=== PATIENT | male | born 1980 | race American Indian/Alaskan Native ===

== ENCOUNTER 2017-04-07 10:10 | Emergency (ER) | payer OTHER ==
[2017-04-07 10:23] VITALS: BP 119/86
--- NOTE | 2017-04-07 11:17 | Emergency Department Report ---
ED ENT HPI - General Chief complaint: Earache Stated complaint: EAR ACHE/HERNÁNDEZ Time Seen by Provider: 04/07/17 11:11 Source: patient Mode of arrival: Ambulatory Limitations: No Limitations - History of Present Illness Initial comments: 36-year-old male past medical history none presents with complaint of 2 days of left-sided earache. Denies any foreign body in ear denies any pus drainage from the ear. States he has occasional tinnitus. Last for a few seconds at a time. Denies any dizziness or headache. Patient speaking in full sentences not in acute distress. States he took Tylenol at home with [id number] ear drops with minimal relief of his earache. Patient denies any other symptoms denies fevers or chills. MD complaint: ear pain Onset/Timin -: days(s) Location: L ear Severity: mild Quality: aching Consistency: constant Improves with: none Worsens with: none - Related Data Previous Rx's Medication Instructions Recorded Last Taken Type Acetaminophen/Codeine [Tylenol #3] 1 tab PO Q6H PRN #15 tab 10/05/14 Unknown Rx Naproxen Sodium (Nf) [Anaprox DS 550 mg PO BID PRN #20 tablet 10/05/14 Unknown Rx TAB] Promethazine [Phenergan TAB] 25 mg PO Q6HR PRN #7 tab 02/02/15 Unknown Rx Acetaminophen/Codeine [Tylenol 1 tab PO Q6H PRN #6 tab 04/07/17 Unknown Rx /Codeine # 3 tab] Amoxicillin/Potassium Clav 1 each PO BID #20 tablet 04/07/17 Unknown Rx [Augmentin 875-125 Tablet] Ibuprofen [Motrin] 800 mg PO Q8HR PRN #30 tablet 04/07/17 Unknown Rx Allergies Allergy/AdvReac Type Severity Reaction Status Date / Time No Known Allergies Allergy Verified 04/07/17 10:21 ED Dental HPI - General Chief complaint: Earache Stated complaint: EAR ACHE/HERNÁNDEZ Time Seen by Provider: 04/07/17 11:11 Source: patient Mode of arrival: Ambulatory Limitations: No Limitations - Related Data Previous Rx's Medication Instructions Recorded Last Taken Type Acetaminophen/Codeine [Tylenol #3] 1 tab PO Q6H PRN #15 tab 10/05/14 Unknown Rx Naproxen Sodium (Nf) [Anaprox DS 550 mg PO BID PRN #20 tablet 10/05/14 Unknown Rx TAB] Promethazine [Phenergan TAB] 25 mg PO Q6HR PRN #7 tab 02/02/15 Unknown Rx Acetaminophen/Codeine [Tylenol 1 tab PO Q6H PRN #6 tab 04/07/17 Unknown Rx /Codeine # 3 tab] Amoxicillin/Potassium Clav 1 each PO BID #20 tablet 04/07/17 Unknown Rx [Augmentin 875-125 Tablet] Ibuprofen [Motrin] 800 mg PO Q8HR PRN #30 tablet 04/07/17 Unknown Rx Allergies Allergy/AdvReac Type Severity Reaction Status Date / Time No Known Allergies Allergy Verified 04/07/17 10:21 ED Review of Systems ROS: Stated complaint: EAR ACHE/HERNÁNDEZ Other details as noted in HPI Constitutional: denies: chills, fever Eyes: denies: eye pain, eye discharge, vision change ENT: ear pain. denies: throat pain Respiratory: denies: cough, shortness of breath, wheezing Cardiovascular: denies: chest pain, palpitations Endocrine: no symptoms reported Gastrointestinal: denies: abdominal pain, nausea, diarrhea Genitourinary: denies: urgency, dysuria Musculoskeletal: denies: back pain, joint swelling, arthralgia Skin: denies: rash, lesions Neurological: denies: headache, weakness, paresthesias Psychiatric: denies: anxiety, depression Hematological/Lymphatic: denies: easy bleeding, easy bruising ED Past Medical Hx - Past Medical History Previous Medical History?: No - Surgical History Past Surgical History?: No - Social History Smoking Status: Current Every Day Smoker Substance Use Type: None - Medications Home Medications: Home Medications Medication Instructions Recorded Confirmed Last Taken Type Acetaminophen/Codeine [Tylenol #3] 1 tab PO Q6H PRN #15 tab 10/05/14 Unknown Rx Naproxen Sodium (Nf) [Anaprox DS 550 mg PO BID PRN #20 tablet 10/05/14 Unknown Rx TAB] Promethazine [Phenergan TAB] 25 mg PO Q6HR PRN #7 tab 02/02/15 Unknown Rx Acetaminophen/Codeine [Tylenol 1 tab PO Q6H PRN #6 tab 04/07/17 Unknown Rx /Codeine # 3 tab] Amoxicillin/Potassium Clav 1 each PO BID #20 tablet 04/07/17 Unknown Rx [Augmentin 875-125 Tablet] Ibuprofen [Motrin] 800 mg PO Q8HR PRN #30 tablet 04/07/17 Unknown Rx ED Physical Exam - General Limitations: No Limitations General appearance: alert, in no apparent distress - Head Head exam: Present: atraumatic, normocephalic - Eye Eye exam: Present: normal appearance, PERRL, EOMI - ENT ENT exam: Present: mucous membranes moist - Expanded ENT Exam Expanded TM/Canal exam: Erythema: Left TM, Bulging: Left TM (left external auditory canal intact, erythematous, eardrum erythematous but no perforations. There is no mastoid tenderness on exam) Mouth exam: Present: normal external inspection Teeth exam: Present: normal inspection Throat exam: Positive: normal inspection - Neck Neck exam: Present: normal inspection, full ROM - Respiratory Respiratory exam: Present: normal lung sounds bilaterally. Absent: respiratory distress - Cardiovascular Cardiovascular Exam: Present: regular rate, normal rhythm. Absent: systolic murmur, diastolic murmur, rubs, gallop - GI/Abdominal GI/Abdominal exam: Present: soft, normal bowel sounds - Rectal Rectal exam: Present: deferred - Extremities Exam Extremities exam: Present: normal inspection - Back Exam Back exam: Present: normal inspection - Neurological Exam Neurological exam: Present: alert, oriented X3 - Psychiatric Psychiatric exam: Present: normal affect, normal mood - Skin Skin exam: Present: warm, dry, intact, normal color. Absent: rash ED Course Vital Signs 04/07/17 04/07/17 10:22 10:23 Temperature 99 F 99 F Pulse Rate 98 H 98 H Respiratory 16 Rate Blood Pressure 119/86 [Right] O2 Sat by Pulse 97 Oximetry ED Medical Decision Making - Medical Decision Making A/P: Otitis media left side 1-10 day course of Augmentin, Motrin 800 when necessary 2-follow-up with primary care and ENT Critical care attestation.: If time is entered above; I have spent that time in minutes in the direct care of this critically ill patient, excluding procedure time. ED Disposition Clinical Impression: Earache on left Otitis media Qualifiers: Otitis media type: suppurative Chronicity: acute Laterality: left Recurrence: not specified as recurrent Spontaneous tympanic membrane rupture: without spontaneous rupture Qualified Code(s): H66.002 - Acute suppurative otitis media without spontaneous rupture of ear drum, left ear Disposition: DC-01 TO HOME OR SELFCARE Is pt being admited?: No Does the pt Need Aspirin: No Condition: Stable Instructions: Otitis Media (ED), Earache (ED), Anesthetics (Into the ear) Prescriptions: Acetaminophen/Codeine [Tylenol /Codeine # 3 tab] 1 tab PO Q6H PRN #6 tab PRN Reason: Pain Amoxicillin/Potassium Clav [Augmentin 875-125 Tablet] 1 each PO BID #20 tablet Ibuprofen [Motrin] 800 mg PO Q8HR PRN #30 tablet PRN Reason: Pain Referrals: [facility] [Outside] - 3-5 Days [facility] [Outside] - 3-5 Days ENT [facility] [Provider Group] - 3-5 Days ENT [facility] [Provider Group] - 3-5 Days Forms: Work/School Release Form(ED) Time of Disposition: 11:17
== END 2017-04-07 11:56 | disposition home or self-care (01) ==
LOC: ED 10:10
DX: H92.02 Otalgia, left ear (principal); F17.200 Nicotine dependence, unspecified, uncomplicated
CPT/HCPCS: 99282

== ENCOUNTER 2017-07-17 07:49 | Emergency (ER) | payer OTHER ==
[2017-07-17 08:05] VITALS: BP 127/77
[2017-07-17] MEDS ORDERED: TYLENOL ONE (08:05)
[2017-07-17] MEDS ORDERED: TYLENOL PO ONE (08:06)
--- NOTE | 2017-07-17 08:26 | XRay Report ---
Chest 2 views: History: Shortness of breath. Findings: Normal cardiomediastinal silhouette. Trachea is midline. No consolidation, pneumothorax or pleural effusion. Impression: No acute cardiopulmonary findings.
[2017-07-17 08:29] LABS: Basophils % (Auto) 0.3 % (0.0-1.8); Eosinophils # (Auto) 0.1 K/mm3 (0.0-0.4); Eosinophils % (Auto) 0.5 % (0.0-4.3); Hematocrit 42.2 % (35.5-45.6); Hemoglobin 14.8 gm/dl (11.8-15.2); Lymphocytes # (Auto) 1.8 K/mm3 (1.2-5.4); Lymphocytes % (Auto) 12.1 % (13.4-35.0); Mean Corpuscular HGB Conc 35 % (32-34); Mean Corpuscular Hemoglobin 32 pg (28-32); Mean Corpuscular Volume 90 fl (84-94); Monocytes # (Auto) 0.8 K/mm3 (0.0-0.8); Monocytes % (Auto) 5.5 % (0.0-7.3); Platelet Count 328 K/mm3 (140-440); Red Blood Count 4.69 M/mm3 (3.65-5.03); Red Cell Distribution Width 12.9 % (13.2-15.2)
[2017-07-17 08:40] LABS: BUN/Creatinine Ratio 18; Blood Urea Nitrogen 14 mg/dL (9-20); Hemolysis Index 8
--- NOTE | 2017-07-17 10:35 | Emergency Department Report ---
ED General Adult HPI - General Chief complaint: Upper Respiratory Infection Stated complaint: FLU SYMPTOMS Source: patient Mode of arrival: Ambulatory Limitations: No Limitations - History of Present Illness Initial comments: Patient presents to the emergency department complaint of a fever for the last couple days and cough. Patient denies any chest pain, shortness of breath, headache. -: Gradual Radiation: non-radiation Severity scale (0 -10): 0 Consistency: constant Improves with: none Worsens with: none Associated Symptoms: denies other symptoms Treatments Prior to Arrival: none - Related Data Previous Rx's Medication Instructions Recorded Last Taken Type Acetaminophen/Codeine [Tylenol #3] 1 tab PO Q6H PRN #15 tab 10/05/14 Unknown Rx Naproxen Sodium (Nf) [Anaprox DS 550 mg PO BID PRN #20 tablet 10/05/14 Unknown Rx TAB] Promethazine [Phenergan TAB] 25 mg PO Q6HR PRN #7 tab 02/02/15 Unknown Rx Acetaminophen/Codeine [Tylenol 1 tab PO Q6H PRN #6 tab 04/07/17 Unknown Rx /Codeine # 3 tab] Amoxicillin/Potassium Clav 1 each PO BID #20 tablet 04/07/17 Unknown Rx [Augmentin 875-125 Tablet] Ibuprofen [Motrin] 800 mg PO Q8HR PRN #30 tablet 04/07/17 Unknown Rx ALBUTEROL Inhaler [ProAir HFA 2 puff IH Q4HR PRN #1 inhalation 07/17/17 Unknown Rx Inhaler] Benzonatate [Tessalon Perles] 100 mg PO Q8HR PRN #24 capsule 07/17/17 Unknown Rx Levofloxacin [Levaquin] 750 mg PO QDAY 5 Days #5 tablet 07/17/17 Unknown Rx Allergies Allergy/AdvReac Type Severity Reaction Status Date / Time No Known Allergies Allergy Verified 04/07/17 10:21 ED Review of Systems ROS: Stated complaint: FLU SYMPTOMS Other details as noted in HPI Constitutional: fever. denies: chills Eyes: denies: eye pain, eye discharge, vision change ENT: denies: ear pain, throat pain Respiratory: cough. denies: shortness of breath, wheezing Cardiovascular: denies: chest pain, palpitations Endocrine: no symptoms reported Gastrointestinal: denies: abdominal pain, nausea, diarrhea Genitourinary: denies: urgency, dysuria Musculoskeletal: denies: back pain, joint swelling, arthralgia Skin: denies: rash, lesions Neurological: denies: headache, weakness, paresthesias Psychiatric: denies: anxiety, depression Hematological/Lymphatic: denies: easy bleeding, easy bruising ED Past Medical Hx - Past Medical History Previous Medical History?: No - Surgical History Past Surgical History?: No - Social History Smoking Status: Current Every Day Smoker Substance Use Type: Non Opiate Pain - Medications Home Medications: Home Medications Medication Instructions Recorded Confirmed Last Taken Type Acetaminophen/Codeine [Tylenol #3] 1 tab PO Q6H PRN #15 tab 10/05/14 Unknown Rx Naproxen Sodium (Nf) [Anaprox DS 550 mg PO BID PRN #20 tablet 10/05/14 Unknown Rx TAB] Promethazine [Phenergan TAB] 25 mg PO Q6HR PRN #7 tab 02/02/15 Unknown Rx Acetaminophen/Codeine [Tylenol 1 tab PO Q6H PRN #6 tab 04/07/17 Unknown Rx /Codeine # 3 tab] Amoxicillin/Potassium Clav 1 each PO BID #20 tablet 04/07/17 Unknown Rx [Augmentin 875-125 Tablet] Ibuprofen [Motrin] 800 mg PO Q8HR PRN #30 tablet 04/07/17 Unknown Rx ALBUTEROL Inhaler [ProAir HFA 2 puff IH Q4HR PRN #1 inhalation 07/17/17 Unknown Rx Inhaler] Benzonatate [Tessalon Perles] 100 mg PO Q8HR PRN #24 capsule 07/17/17 Unknown Rx Levofloxacin [Levaquin] 750 mg PO QDAY 5 Days #5 tablet 07/17/17 Unknown Rx ED Physical Exam - General Limitations: No Limitations General appearance: alert, in no apparent distress - Head Head exam: Present: atraumatic, normocephalic - Eye Eye exam: Present: normal appearance - ENT ENT exam: Present: mucous membranes moist - Neck Neck exam: Present: normal inspection - Respiratory Respiratory exam: Present: other (rales left lung base). Absent: respiratory distress - Cardiovascular Cardiovascular Exam: Present: regular rate, normal rhythm. Absent: systolic murmur, diastolic murmur, rubs, gallop - GI/Abdominal GI/Abdominal exam: Present: soft, normal bowel sounds - Rectal Rectal exam: Present: deferred - Extremities Exam Extremities exam: Present: normal inspection - Back Exam Back exam: Present: normal inspection - Neurological Exam Neurological exam: Present: alert, oriented X3 - Psychiatric Psychiatric exam: Present: normal affect, normal mood - Skin Skin exam: Present: warm, dry, intact, normal color. Absent: rash ED Course Vital Signs 07/17/17 08:03 Temperature 101 F H Pulse Rate 109 H Respiratory 18 Rate Blood Pressure 127/77 O2 Sat by Pulse 94 Oximetry ED Medical Decision Making - Lab Data Result diagrams: 07/17/17 08:12 07/17/17 08:12 - Medical Decision Making Discussed results with patient Critical care attestation.: If time is entered above; I have spent that time in minutes in the direct care of this critically ill patient, excluding procedure time. ED Disposition Clinical Impression: Pneumonia Disposition: - TO HOME OR SELFCARE Is pt being admited?: No Does the pt Need Aspirin: No Condition: Stable Instructions: Bacterial Pneumonia (ED), Pneumonia (ED) Additional Instructions: Return if symptoms become worse Prescriptions: ALBUTEROL Inhaler [ProAir HFA Inhaler] 2 puff IH Q4HR PRN #1 inhalation PRN Reason: Shortness Of Breath Benzonatate [Tessalon Perles] 100 mg PO Q8HR PRN #24 capsule PRN Reason: Cough Levofloxacin [Levaquin] 750 mg PO QDAY 5 Days #5 tablet Referrals: PRIMARY MD SAIMA [Primary Care Provider] - 3-5 Days ROMA RICHARDSON MD [Staff Physician] - 3-5 Days Forms: Work/School Release Form(ED) Time of Disposition: 10:32
== END 2017-07-17 10:50 | disposition home or self-care (01) ==
LOC: ED 07:49
DX: J18.9 Pneumonia, unspecified organism (principal); F17.200 Nicotine dependence, unspecified, uncomplicated; Z79.899 Other long term (current) drug therapy
CPT/HCPCS: 36415; 71046; 80048; 85025

== ENCOUNTER 2017-07-31 18:50 | Emergency (ER) | payer OTHER ==
--- NOTE | 2017-07-31 23:33 | Emergency Department Report ---
HPI - General Chief Complaint: Upper Respiratory Infection Time Seen by Provider: 07/31/17 22:40 - HPI HPI: 37-year-old male presents to the emergency department with a complaint of 2+ weeks of sinus congestion. He was seen here on 07/17/17 for similar symptoms but at that time he had a slight cough as well at that time. He was diagnosed with a pneumonia and was placed on Levaquin. He says that he took the antibiotics but his symptoms have not fully resolved. He no longer complains of the cough but sometimes says that he had some intermittent chills. He otherwise denies any past medical history. He denies any tobacco or illicit drug use or abuse. He does not have a primary care physician. No recent travel or sick contacts at home. ED Past Medical Hx - Past Medical History Previous Medical History?: No - Surgical History Past Surgical History?: No - Social History Smoking Status: Former Smoker Substance Use Type: None - Medications Home Medications: Home Medications Medication Instructions Recorded Confirmed Last Taken Type Acetaminophen/Codeine [Tylenol #3] 1 tab PO Q6H PRN #15 tab 10/05/14 Unknown Rx Naproxen Sodium (Nf) [Anaprox DS 550 mg PO BID PRN #20 tablet 10/05/14 Unknown Rx TAB] Promethazine [Phenergan TAB] 25 mg PO Q6HR PRN #7 tab 02/02/15 Unknown Rx Acetaminophen/Codeine [Tylenol 1 tab PO Q6H PRN #6 tab 04/07/17 Unknown Rx /Codeine # 3 tab] Amoxicillin/Potassium Clav 1 each PO BID #20 tablet 04/07/17 Unknown Rx [Augmentin 875-125 Tablet] Ibuprofen [Motrin] 800 mg PO Q8HR PRN #30 tablet 04/07/17 Unknown Rx ALBUTEROL Inhaler [ProAir HFA 2 puff IH Q4HR PRN #1 inhalation 07/17/17 Unknown Rx Inhaler] Benzonatate [Tessalon Perles] 100 mg PO Q8HR PRN #24 capsule 07/17/17 Unknown Rx Levofloxacin [Levaquin] 750 mg PO QDAY 5 Days #5 tablet 07/17/17 Unknown Rx Fluticasone [Flonase] 2 spray NS QDAY #1 bottle 07/31/17 Unknown Rx Loratadine/Pseudoephedrine 1 tab PO DAILY #14 tablet 07/31/17 Unknown Rx [Claritin-D 24Hr] ED Review of Systems ROS: Stated complaint: FEVER/WEAKNESS Other details as noted in HPI Comment: All other systems reviewed and negative Constitutional: chills. denies: fever Eyes: denies: eye pain, eye discharge, vision change ENT: congestion. denies: ear pain Respiratory: denies: shortness of breath, wheezing Cardiovascular: denies: chest pain, palpitations Gastrointestinal: denies: abdominal pain, nausea, diarrhea Genitourinary: denies: urgency, dysuria Musculoskeletal: denies: back pain, joint swelling, arthralgia Skin: denies: rash, lesions Neurological: denies: headache, weakness, paresthesias Physical Exam - Physical Exam Vital Signs: Vital Signs 07/31/17 18:55 Temperature 98.9 F Pulse Rate 122 H Respiratory 16 Rate Blood Pressure 122/88 O2 Sat by Pulse 96 Oximetry Physical Exam: GENERAL: The patient is well-developed well-nourished. HENT: Normocephalic. Atraumatic. Patient has moist mucous membranes. There is some boggy nasal mucosa. He has some reproducible tenderness along the paranasal sinuses. EYES: Extraocular motions are intact. Pupils equal reactive to light bilaterally. NECK: Supple. Trachea is midline. CHEST/LUNGS: Clear to auscultation. There is no respiratory distress noted. HEART/CARDIOVASCULAR: Regular. There is no tachycardia. There is no murmur. ABDOMEN: Abdomen is soft, nontender. Patient has normal bowel sounds. There is no abdominal distention. SKIN: Skin is warm and dry. NEURO: The patient is awake, alert, and oriented. The patient is cooperative. The patient has no focal neurologic deficits. The patient has normal speech. MUSCULOSKELETAL: There is no tenderness or deformity. There is no limitation range of motion. There is no evidence of acute injury. ED Course Vital Signs 07/31/17 18:55 Temperature 98.9 F Pulse Rate 122 H Respiratory 16 Rate Blood Pressure 122/88 O2 Sat by Pulse 96 Oximetry - Pulse Oximetry Interpretation Digit-Finger Initial Pulse Oximetry Readin O2 Sat by Pulse Oximetry: 96 Actions Taken: none Additional Comments: Normal ED Medical Decision Making - Radiology Data Radiology results: image reviewed interpreted by me: Chest x-ray does not show any acute process. There are no pleural effusions, obvious pneumonia and there is no pneumothorax. - Medical Decision Making Patient presents to the emergency department for a follow-up regarding some upper respiratory type symptoms he has been having that have not resolved after going on some antibiotics and other treatments from a previous visit. Most of his complaint is regarding sinus pressure. However the patient insisted that he didn't want to repeat his x-ray to make sure that there was no pneumonia or abnormalities as he says he was diagnosed with pneumonia but then someone else read him the radiology report which showed that there was no signs of pneumonia. His vital signs were stable except for he had some tachycardia through triage that has since resolved. He is afebrile. Chest x-ray did not show any acute process. 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 He has been given referrals for primary care. He will return to the ER with any worsening of symptoms or any acute distress. - Differential Diagnosis pneumonia, viral URI, sinusitis, influenza Critical Care Time: No Critical care attestation.: If time is entered above; I have spent that time in minutes in the direct care of this critically ill patient, excluding procedure time. ED Disposition Clinical Impression: Sinus congestion Upper respiratory infection Qualifiers: URI type: unspecified URI Qualified Code(s): J06.9 - Acute upper respiratory infection, unspecified Disposition: DC-01 TO HOME OR SELFCARE Is pt being admited?: No Condition: Stable Instructions: Upper Respiratory Infection (ED), Cold Symptoms (ED) Additional Instructions: Please follow up with a primary care physician in the next few days if possible. Return to the emergency Department with any worsening of your symptoms or any acute distress. Prescriptions: Fluticasone [Flonase] 2 spray NS QDAY #1 bottle Loratadine/Pseudoephedrine [Claritin-D 24Hr] 1 tab PO DAILY #14 tablet Referrals: PRIMARY MD SAIMA [Primary Care Provider] - 3-5 Days STAS RACHEL MD [Staff Physician] - 3-5 Days MALICK HARRIS MD [Staff Physician] - 3-5 Days Time of Disposition: 23:36
[2017-07-31 23:37] VITALS: BP 121/81
--- NOTE | 2017-08-05 14:15 | XRay Report ---
FINAL REPORT EXAM: XR CHEST ROUTINE 2V HISTORY: cough TECHNIQUE: Frontal and lateral chest x-ray. PRIORS: None. FINDINGS: Cardiac and mediastinal silhouette within normal limits. Lungs are normally expanded, without significant vascular congestion. No focal consolidation, pleural effusion or apparent pneumothorax. Bony thorax grossly unremarkable. IMPRESSION: 1. No acute consolidation.
== END 2017-07-31 23:46 | disposition home or self-care (01) ==
LOC: ED 18:50
DX: J06.9 Acute upper respiratory infection, unspecified (principal); Z87.891 Personal history of nicotine dependence
CPT/HCPCS: 71046; 99283

== ENCOUNTER 2018-07-22 20:35 | Emergency (ER) | payer OTHER ==
--- NOTE | 2018-07-22 20:44 | Emergency Department Report ---
Blank Doc - Documentation Documentation: 38 y o male presents with left ear radiating to neck pain x couple of days no dental pain ACC eval
== END 2018-07-23 00:30 | disposition left against medical advice (07) ==
LOC: ED 20:35
DX: M54.2 Cervicalgia (principal); R51 Headache; Z53.21 Procedure and treatment not carried out due to patient leaving prior to being seen by health care provider

== ENCOUNTER 2018-12-13 22:50 | Emergency (ER) | payer OTHER ==
[2018-12-13 23:32] LABS: Basophils % (Auto) 0.4 % (0.0-1.8); Eosinophils # (Auto) 0.4 K/mm3 (0.0-0.4); Eosinophils % (Auto) 4.5 % (0.0-4.3); Hematocrit 45.6 % (35.5-45.6); Hemoglobin 15.7 gm/dl (11.8-15.2); Lymphocytes # (Auto) 1.7 K/mm3 (1.2-5.4); Lymphocytes % (Auto) 22.3 % (13.4-35.0); Mean Corpuscular HGB Conc 34 % (32-34); Mean Corpuscular Volume 95 fl (84-94); Monocytes # (Auto) 0.6 K/mm3 (0.0-0.8); Monocytes % (Auto) 7.9 % (0.0-7.3); Platelet Count 270 K/mm3 (140-440); Red Blood Count 4.81 M/mm3 (3.65-5.03); Red Cell Distribution Width 12.9 % (13.2-15.2)
--- NOTE | 2018-12-13 23:47 | XRay Report ---
CHEST 1 VIEW INDICATION / CLINICAL INFORMATION: Chest Pain. COMPARISON: 07/31/2017 FINDINGS: SUPPORT DEVICES: None. HEART / MEDIASTINUM: No significant abnormality. LUNGS / PLEURA: No significant pulmonary or pleural abnormality. No pneumothorax. ADDITIONAL FINDINGS: No significant additional findings. IMPRESSION: 1. No acute findings. Signer Name: Jonathan Garibay MD Signed: 12/13/2018 11:43 PM Workstation Name: [id number]
--- NOTE | 2018-12-13 23:47 | Cat Scan Report ---
CT head/brain wo con INDICATION / CLINICAL INFORMATION: syncopy. TECHNIQUE: All CT scans at this location are performed using CT dose reduction for ALARA by means of automated e xposure control. COMPARISON: None available. FINDINGS: No intracranial hemorrhage or abnormal extra-axial fluid collection. The ventricular system and basilar cisterns are normal. No evidence of territorial infarction or mass effect. Partial opacification of the right ethmoid sinus without demonstrated air-fluid level. No skeletal abnormality. IMPRESSION: 1. No acute intracranial abnormality. 2. Right ethmoid sinus disease. Signer Name: Jonathan Garibay MD Signed: 12/13/2018 11:43 PM Workstation Name: [id number]
[2018-12-13 23:48] LABS: BUN/Creatinine Ratio 17; Blood Urea Nitrogen 15 mg/dL (9-20); Calcium 9.2 mg/dL (8.4-10.2); Hemolysis Index 11
--- NOTE | 2018-12-14 00:05 | Emergency Department Report ---
ED Syncope HPI - General Chief Complaint: Syncope Stated Complaint: FAINTING SPELLS Time Seen by Provider: 12/13/18 23:44 - History of Present Illness Initial Comments: Mr. Carrasquillo is a 38-year-old -[place] Citizen male who presents with stating he had a syncopal episode yesterday after taking sleep aid. states patient woke up suddenly and upon returning back to bed fell across to bed was hard to arouse. States she,called an ambulance last night however symptoms resolved in 1-2 minutes so ambulance was canceled. Pt denies symptoms since yesterday. Drove to ed tonight because he wanted to be checked out. Pt has no history of seizures, there is no postictal phase per . There is no feverc no chills, no cough,no chest pain or shortness of breath, no nausea or vomiting. patient denies substance on yesterday. Patient denies alcohol on yesterday. states he took sleep Aid because of his head congestion. Timing/Prior Episodes: other (single episode yesterday ) Precipitating Factors: Positive: none Context: standing Loss of Consciousness: brief (seconds) Current Symptoms: back to normal - Related Data Allergies/Adverse Reactions: Allergies No Known Allergies Allergy (Verified 04/07/17 10:21) Home Medications: Ambulatory Orders Acetaminophen/Codeine [Tylenol #3] 1 tab PO Q6H PRN #15 tab 10/05/14 Naproxen Sodium (Nf) [Anaprox DS TAB] 550 mg PO BID PRN #20 tablet 10/05/14 Promethazine [Phenergan TAB] 25 mg PO Q6HR PRN #7 tab 02/02/15 Acetaminophen/Codeine [Tylenol /Codeine # 3 tab] 1 tab PO Q6H PRN #6 tab 04/07/17 Amoxicillin/Potassium Clav [Augmentin 875-125 Tablet] 1 each PO BID #20 tablet 04/07/17 Ibuprofen [Motrin] 800 mg PO Q8HR PRN #30 tablet 04/07/17 ALBUTEROL Inhaler (OR & NICU) [ProAir HFA Inhaler] 2 puff IH Q4HR PRN #1 inhalation 07/17/17 Benzonatate [Tessalon Perles] 100 mg PO Q8HR PRN #24 capsule 07/17/17 levoFLOXacin [Levaquin] 750 mg PO QDAY 5 Days #5 tablet 07/17/17 Fluticasone [Flonase] 2 spray NS QDAY #1 bottle 07/31/17 Loratadine/Pseudoephedrine [Claritin-D 24Hr] 1 tab PO DAILY #14 tablet 07/31/17 Amoxicillin/Potassium Clav [Augmentin 875-125 Tablet] 1 each PO BID 7 Days #14 tablet 12/14/18 Fluticasone [Flonase] 1 spray NS QDAY #1 bottle 12/14/18 diphenhydrAMINE [Benadryl CAP] 25 mg PO Q8HR PRN #21 capsule 12/14/18 predniSONE [Deltasone] 40 mg PO QDAY 5 Days #10 tab 12/14/18 ED Review of Systems ROS: Stated complaint: FAINTING SPELLS Other details as noted in HPI Constitutional: denies: chills, fever Eyes: denies: eye pain, eye discharge, vision change ENT: congestion. denies: ear pain, throat pain Respiratory: cough. denies: shortness of breath, wheezing Cardiovascular: denies: chest pain, palpitations Endocrine: no symptoms reported Gastrointestinal: denies: abdominal pain, nausea, vomiting, diarrhea Genitourinary: denies: urgency, dysuria Musculoskeletal: denies: back pain, joint swelling, arthralgia Skin: denies: rash, lesions Neurological: denies: headache, weakness, numbness, paresthesias, confusion, vertigo Psychiatric: denies: anxiety, depression Hematological/Lymphatic: denies: easy bleeding, easy bruising ED Past Medical Hx - Past Medical History Previous Medical History?: No - Surgical History Past Surgical History?: No - Social History Smoking Status: Current Every Day Smoker Substance Use Type: Alcohol, Marijuana - Medications Home Medications: Home Medications Medication Instructions Recorded Confirmed Last Taken Type Acetaminophen/Codeine [Tylenol #3] 1 tab PO Q6H PRN #15 tab 10/05/14 Unknown Rx Naproxen Sodium (Nf) [Anaprox DS 550 mg PO BID PRN #20 tablet 10/05/14 Unknown Rx TAB] Promethazine [Phenergan TAB] 25 mg PO Q6HR PRN #7 tab 02/02/15 Unknown Rx Acetaminophen/Codeine [Tylenol 1 tab PO Q6H PRN #6 tab 04/07/17 Unknown Rx /Codeine # 3 tab] Amoxicillin/Potassium Clav 1 each PO BID #20 tablet 04/07/17 Unknown Rx [Augmentin 875-125 Tablet] Ibuprofen [Motrin] 800 mg PO Q8HR PRN #30 tablet 04/07/17 Unknown Rx ALBUTEROL Inhaler (OR & NICU) 2 puff IH Q4HR PRN #1 inhalation 07/17/17 Unknown Rx [ProAir HFA Inhaler] Benzonatate [Tessalon Perles] 100 mg PO Q8HR PRN #24 capsule 07/17/17 Unknown Rx levoFLOXacin [Levaquin] 750 mg PO QDAY 5 Days #5 tablet 07/17/17 Unknown Rx Fluticasone [Flonase] 2 spray NS QDAY #1 bottle 07/31/17 Unknown Rx Loratadine/Pseudoephedrine 1 tab PO DAILY #14 tablet 07/31/17 Unknown Rx [Claritin-D 24Hr] Amoxicillin/Potassium Clav 1 each PO BID 7 Days #14 tablet 12/14/18 Unknown Rx [Augmentin 875-125 Tablet] Fluticasone [Flonase] 1 spray NS QDAY #1 bottle 12/14/18 Unknown Rx diphenhydrAMINE [Benadryl CAP] 25 mg PO Q8HR PRN #21 capsule 12/14/18 Unknown Rx predniSONE [Deltasone] 40 mg PO QDAY 5 Days #10 tab 12/14/18 Unknown Rx ED Physical Exam - General Limitations: No Limitations General appearance: alert, in no apparent distress - Head Head exam: Present: atraumatic, normocephalic, normal inspection - Eye Eye exam: Present: normal appearance, PERRL, EOMI. Absent: conjunctival injection, nystagmus Pupils: Present: normal accommodation - ENT ENT exam: Present: normal exam, normal orophraynx, mucous membranes moist, TM's normal bilaterally, normal external ear exam, other (clear post nasal drip ) - Neck Neck exam: Present: normal inspection, full ROM. Absent: tenderness, meningismus, lymphadenopathy, thyromegaly - Respiratory Respiratory exam: Present: normal lung sounds bilaterally. Absent: respiratory distress, wheezes, stridor, chest wall tenderness - Cardiovascular Cardiovascular Exam: Present: regular rate, normal rhythm, normal heart sounds. Absent: systolic murmur, diastolic murmur, rubs, gallop - GI/Abdominal GI/Abdominal exam: Present: soft, normal bowel sounds. Absent: distended, tenderness, guarding, rebound, rigid, bruit, hernia - Rectal Rectal exam: Present: deferred - Extremities Exam Extremities exam: Present: normal inspection, full ROM, normal capillary refill. Absent: tenderness, pedal edema - Back Exam Back exam: Present: normal inspection, full ROM. Absent: tenderness, CVA tenderness (R), CVA tenderness (L), rash noted - Neurological Exam Neurological exam: Present: alert, oriented X3, CN II-XII intact, normal gait, reflexes normal. Absent: motor sensory deficit - Expanded Neurological Exam Expanded Patient oriented to: Present: person, place, time Speech: Present: fluid speech Cranial nerves: EOM's Intact: Normal, Gag Reflex: Normal, Tongue Deviation: Normal, Nystagmus: Normal, Facial Sensation: Normal Upper motor neuron: Oli Neglect: Normal, Pronator Drift: Normal Motor strength exam: RUE: 5, LUE: 5, RLE: 5, LLE: 5 DTR: bicep (R): 2+, bicep (L): 2+, ankle (R): 2+, ankle (L): 2+ Best Eye Response (Widen): (4) open spontaneously Best Motor Response (Widen): (6) obeys commands Best Verbal Response (Widen): (5) oriented Widen Total: 15 - Psychiatric Psychiatric exam: Present: normal affect, normal mood - Skin Skin exam: Present: warm, dry, intact, normal color. Absent: rash ED Course Vital Signs 12/13/18 12/14/18 22:54 01:17 Temperature 99.1 F Pulse Rate 94 H Respiratory 18 20 Rate Blood Pressure 154/94 O2 Sat by Pulse 97 Oximetry ED Medical Decision Making - Lab Data Result diagrams: 12/13/18 23:10 12/13/18 23:10 - EKG Data EKG shows normal: sinus rhythm, axis, intervals, QRS complexes, ST-T waves Rate: normal - EKG Data Interpretation: normal EKG (ekg interp by ed attending NSR , No ST Elevated IA ) - Radiology Data Radiology results: report reviewed, image reviewed Findings [facility] [address] [place] [address] XRay Report Signed Patient: RANDOLPH CARRASQUILLO JR MR #: [id number] : 1980 Acct:[id number] Age/Sex: 38 / M ADM Date: 12/13/18 Loc: ED Attending Dr: Ordering Physician: PEPPER JAMES MD Date of Service: 12/13/18 Procedure(s): XR chest 1V ap Accession Number(s): [id number] cc: PEPPER JAMES MD Fluoro Time In Minutes: CHEST 1 VIEW INDICATION / CLINICAL INFORMATION: Chest Pain. COMPARISON: 07/31/2017 FINDINGS: SUPPORT DEVICES: None. HEART / MEDIASTINUM: No significant abnormality. LUNGS / PLEURA: No significant pulmonary or pleural abnormality. No pneumothorax. ADDITIONAL FINDINGS: No significant additional findings. IMPRESSION: 1. No acute findings. Signer Name: Jonathan Garibay MD Signed: 12/13/2018 11:43 PM Workstation Name: [id number] Transcribed By: LEONELA Dictated By: Jonathan Garbiay MD Electronically Authenticated By: Jonathan Garibay MD Signed Date/Time: 12/13/182342 DD/ 42 TD/TT: Findings [facility] [address] [place] [address] Cat Scan Report Signed Patient: RANDOLPH CARRASQUILLO JR MR #: [id number] : 1980 Acct:[id number] Age/Sex: 38 / M ADM Date: 12/13/18 Loc: ED Attending Dr: Ordering Physician: PEPPER JAMES MD Date of Service: 12/13/18 Procedure(s): CT head/brain wo con Accession Number(s): [id number] cc: PEPPER JAMES MD CT head/brain wo con INDICATION / CLINICAL INFORMATION: syncopy. TECHNIQUE: All CT scans at this location are performed using CT dose reduction for ALARA by means of automated exposure control. COMPARISON: None available. FINDINGS: No intracranial hemorrhage or abnormal extra-axial fluid collection. The ventricular system and basilar cisterns are normal. No evidence of territorial infarction or mass effect. Partial opacification of the right ethmoid sinus without demonstrated air-fluid level. No skeletal abnormality. IMPRESSION: 1. No acute intracranial abnormality. 2. Right ethmoid sinus disease. Signer Name: Jonathan Garibay MD Signed: 12/13/2018 11:43 PM Workstation Name: [id number] Transcribed By: [place] Dictated By: Jonathan Garibay MD Electronically Authenticated By: Jonathan Garibay MD Signed Date/Time: 12/13/182342 DD/ 38 TD/TT: - Medical Decision Making CT: Ethmoid Opacity, cxr: beto no infiltrate no opacities, discussed findings with patient and , pt states symptoms are much improved. there is no cp no sob no dizziness no lightheadedness no n/v no diaphoresis. pt is ambulatory with steady gait at this time, pt appears nontoxic. Heart score is: 0. Plan: DC to home with rx for augmentin, ibuprofen, prednisone, flonase. Stop using sleep aid. Take all medications as prescribed. Follow up with your pcp 2-3 days. pt and verbalized agreement and understanding of same. Critical care attestation.: If time is entered above; I have spent that time in minutes in the direct care of this critically ill patient, excluding procedure time. ED Disposition Clinical Impression: Near syncope Sinusitis Qualifiers: Sinusitis location: ethmoidal Chronicity: acute Recurrence: recurrent Qualified Code(s): J01.21 - Acute recurrent ethmoidal sinusitis Disposition: DC-01 TO HOME OR SELFCARE Is pt being admited?: No Does the pt Need Aspirin: No Condition: Stable Instructions: Sinusitis (ED), Near Syncope (ED) Additional Instructions: Follow up with your pcp 2-3 days. Prescriptions: Amoxicillin/Potassium Clav [Augmentin 875-125 Tablet] 1 each PO BID 7 Days #14 tablet diphenhydrAMINE [Benadryl CAP] 25 mg PO Q8HR PRN #21 capsule PRN Reason: sinus congestion predniSONE [Deltasone] 40 mg PO QDAY 5 Days #10 tab Fluticasone [Flonase] 1 spray NS QDAY #1 bottle Referrals: CANDIDO BHANDRAI MD [Staff Physician] - 3-5 Days [facility] [Outside] - 3-5 Days Forms: Work/School Release Form(ED) Time of Disposition: 01:36
[2018-12-14] MEDS ORDERED: IBUPROFEN PO ONE (01:05)
[2018-12-14] MEDS ORDERED: BENADRYL PO ONE (01:05)
[2018-12-14] MEDS ORDERED: DELTASONE PO ONE (01:06)
[2018-12-14 02:12] VITALS: BP 149/83
== END 2018-12-14 02:14 | disposition home or self-care (01) ==
LOC: ED 22:50
DX: J32.9 Chronic sinusitis, unspecified (principal); R55 Syncope and collapse; F17.200 Nicotine dependence, unspecified, uncomplicated; F12.10 Cannabis abuse, uncomplicated
CPT/HCPCS: 36415; 70450; 71045; 80048; 84484; 85025; 93005; 93010; 99285; J7512

== ENCOUNTER 2019-09-10 22:45 | Emergency (ER) | payer OTHER ==
--- NOTE | 2019-09-11 03:09 | Emergency Department Report ---
ED Medical Clearance HPI - General Chief complaint: Medical Clearance Stated complaint: FEELNG ILL Source: patient Mode of arrival: Ambulatory - History of Present Illness Initial comments: Patient is a 39-year-old -[place] male with no past medical history who presents to the ED for evaluation after waking up feeling generalized malaise, fatigue and weakness. Patient states that he thought that his blood pressure was high, and wanted to be evaluated to ensure that it was not his blood pressure. Patient states that no one else at home is had similar symptoms. Patient denies dizziness, syncope, chest pain, shortness of breath, fever, chills, cough, nasal and sinus congestion, abdominal pain, nausea, vomiting, diarrhea, change in vision or seizures or sore throat. MD Complaint: medical clearance request -: Sudden, hour(s) (12) Reason for Medical Clearance: other (felt unwell) Place: home Alledged Intoxication: No Compliant with Home Medications: No (Not on any medications) Traumatic Symptoms: denies traumatic injury Associated Symptoms: malaise, weakness. denies: chest pain, shortness of breath, palpitations, diaphoresis, denies other symptoms, confusion, cough, anorexia, nausea/vomiting, rash, seizure, syncope Treatments Prior to Arrival: none Home medications: Previous Rx's Medication Instructions Recorded Last Taken Type Acetaminophen/Codeine [Tylenol #3] 1 tab PO Q6H PRN #15 tab 10/05/14 Unknown Rx Naproxen Sodium (Nf) [Anaprox DS 550 mg PO BID PRN #20 tablet 10/05/14 Unknown Rx TAB] Promethazine [Phenergan TAB] 25 mg PO Q6HR PRN #7 tab 02/02/15 Unknown Rx Acetaminophen/Codeine [Tylenol 1 tab PO Q6H PRN #6 tab 04/07/17 Unknown Rx /Codeine # 3 tab] Amoxicillin/Potassium Clav 1 each PO BID #20 tablet 04/07/17 Unknown Rx [Augmentin 875-125 Tablet] Ibuprofen [Motrin] 800 mg PO Q8HR PRN #30 tablet 04/07/17 Unknown Rx Albuterol Mdi (or & Nicu Only) 2 puff IH Q4HR PRN #1 inhalation 07/17/17 Unknown Rx [ProAir HFA Inhaler] Benzonatate [Tessalon Perles] 100 mg PO Q8HR PRN #24 capsule 07/17/17 Unknown Rx levoFLOXacin [Levaquin] 750 mg PO QDAY 5 Days #5 tablet 07/17/17 Unknown Rx Fluticasone [Flonase] 2 spray NS QDAY #1 bottle 07/31/17 Unknown Rx Loratadine/Pseudoephedrine 1 tab PO DAILY #14 tablet 07/31/17 Unknown Rx [Claritin-D 24Hr] Amoxicillin/Potassium Clav 1 each PO BID 7 Days #14 tablet 12/14/18 Unknown Rx [Augmentin 875-125 Tablet] Fluticasone [Flonase] 1 spray NS QDAY #1 bottle 12/14/18 Unknown Rx diphenhydrAMINE [Benadryl CAP] 25 mg PO Q8HR PRN #21 capsule 12/14/18 Unknown Rx predniSONE [Deltasone] 40 mg PO QDAY 5 Days #10 tab 12/14/18 Unknown Rx Allergies/Adverse reactions: Allergies Allergy/AdvReac Type Severity Reaction Status Date / Time No Known Allergies Allergy Verified 04/07/17 10:21 ED Review of Systems ROS: Stated complaint: FEELNG ILL Other details as noted in HPI Constitutional: malaise, weakness Eyes: denies: eye pain, eye discharge, vision change ENT: denies: ear pain, throat pain, congestion Respiratory: denies: cough, shortness of breath, wheezing Cardiovascular: denies: chest pain, palpitations Endocrine: no symptoms reported. denies: see HPI, flushing, intolerance to cold Gastrointestinal: denies: abdominal pain, nausea, vomiting, diarrhea, constipation, hematochezia Genitourinary: denies: urgency, dysuria Musculoskeletal: arthralgia, myalgia. denies: back pain, joint swelling Skin: denies: rash, lesions Neurological: denies: headache, weakness, paresthesias Psychiatric: denies: anxiety, depression Hematological/Lymphatic: denies: easy bleeding, easy bruising ED Past Medical Hx - Past Medical History Previous Medical History?: No - Surgical History Past Surgical History?: No - Social History Smoking Status: Current Every Day Smoker Substance Use Type: Marijuana - Medications Home Medications: Home Medications Medication Instructions Recorded Confirmed Last Taken Type Acetaminophen/Codeine [Tylenol #3] 1 tab PO Q6H PRN #15 tab 10/05/14 Unknown Rx Naproxen Sodium (Nf) [Anaprox DS 550 mg PO BID PRN #20 tablet 10/05/14 Unknown Rx TAB] Promethazine [Phenergan TAB] 25 mg PO Q6HR PRN #7 tab 02/02/15 Unknown Rx Acetaminophen/Codeine [Tylenol 1 tab PO Q6H PRN #6 tab 04/07/17 Unknown Rx /Codeine # 3 tab] Amoxicillin/Potassium Clav 1 each PO BID #20 tablet 04/07/17 Unknown Rx [Augmentin 875-125 Tablet] Ibuprofen [Motrin] 800 mg PO Q8HR PRN #30 tablet 04/07/17 Unknown Rx Albuterol Mdi (or & Nicu Only) 2 puff IH Q4HR PRN #1 inhalation 07/17/17 Unknown Rx [ProAir HFA Inhaler] Benzonatate [Tessalon Perles] 100 mg PO Q8HR PRN #24 capsule 07/17/17 Unknown Rx levoFLOXacin [Levaquin] 750 mg PO QDAY 5 Days #5 tablet 07/17/17 Unknown Rx Fluticasone [Flonase] 2 spray NS QDAY #1 bottle 07/31/17 Unknown Rx Loratadine/Pseudoephedrine 1 tab PO DAILY #14 tablet 07/31/17 Unknown Rx [Claritin-D 24Hr] Amoxicillin/Potassium Clav 1 each PO BID 7 Days #14 tablet 12/14/18 Unknown Rx [Augmentin 875-125 Tablet] Fluticasone [Flonase] 1 spray NS QDAY #1 bottle 12/14/18 Unknown Rx diphenhydrAMINE [Benadryl CAP] 25 mg PO Q8HR PRN #21 capsule 12/14/18 Unknown Rx predniSONE [Deltasone] 40 mg PO QDAY 5 Days #10 tab 12/14/18 Unknown Rx ED Physical Exam - General Limitations: No Limitations General appearance: alert, in no apparent distress - Head Head exam: Present: atraumatic, normocephalic, normal inspection - Eye Eye exam: Present: normal appearance, PERRL, EOMI Pupils: Present: normal accommodation - ENT ENT exam: Present: normal exam, normal orophraynx, mucous membranes moist, TM's normal bilaterally, normal external ear exam - Neck Neck exam: Present: normal inspection, full ROM. Absent: tenderness, lymphadenopathy - Respiratory Respiratory exam: Present: normal lung sounds bilaterally. Absent: respiratory distress, wheezes, rales, rhonchi, chest wall tenderness, accessory muscle use, decreased breath sounds, prolonged expiratory, other - Cardiovascular Cardiovascular Exam: Present: regular rate, normal rhythm, normal heart sounds. Absent: systolic murmur, diastolic murmur, rubs, gallop - GI/Abdominal GI/Abdominal exam: Present: soft, normal bowel sounds. Absent: tenderness, guarding, rebound, hyperactive bowel sounds, hypoactive bowel sounds - Extremities Exam Extremities exam: Present: normal inspection, full ROM, normal capillary refill - Back Exam Back exam: Present: normal inspection, full ROM. Absent: muscle spasm, paraspinal tenderness, vertebral tenderness - Neurological Exam Neurological exam: Present: alert, oriented X3, CN II-XII intact, normal gait, reflexes normal - Psychiatric Psychiatric exam: Present: normal affect, normal mood - Skin Skin exam: Present: warm, dry, intact, normal color. Absent: rash ED Course Vital Signs 09/10/19 22:56 Temperature 98.5 F Pulse Rate 80 Respiratory 20 Rate Blood Pressure 141/89 O2 Sat by Pulse 98 Oximetry ED Medical Decision Making - Medical Decision Making This is a 39-year-old -[place] male with no past medical history who presents to the ED for evaluation after waking up feeling generalized malaise, fatigue and weakness. Patient states that he thought that his blood pressure was high, and wanted to be evaluated to ensure that it was not his blood pressure. Patient states that no one else at home is had similar symptoms. In the ED, patient is alert and oriented x3 and is not in distress with normal vital signs. Patient was discharged home and advised follow-up with his primary care physician as needed. Patient was advised return to the ED immediately if symptoms get worse. - Differential Diagnosis viral syndrome; fatigue; exhaustion; weakness ED Disposition Clinical Impression: Well adult on routine health check, Spell of generalized weakness Disposition: DC-01 TO HOME OR SELFCARE Is pt being admited?: No Does the pt Need Aspirin: No Condition: Stable Instructions: Weakness (ED), Fatigue (ED) Additional Instructions: Follow-up with your primary care physician in 7 to 10 days for reevaluation. Return to the ED immediately if symptoms get worse. Referrals: [facility] [Provider Group] - as needed Time of Disposition: 03:08 Print Language: PERSIAN
[2019-09-11 03:30] VITALS: BP 134/76
== END 2019-09-11 03:31 | disposition home or self-care (01) ==
LOC: ED 09-11 00:18
DX: R53.1 Weakness (principal); Z00.00 Encounter for general adult medical examination without abnormal findings; F17.200 Nicotine dependence, unspecified, uncomplicated; F12.10 Cannabis abuse, uncomplicated; Z79.899 Other long term (current) drug therapy; Z79.1 Long term (current) use of non-steroidal anti-inflammatories (NSAID)
CPT/HCPCS: 99282